=== PATIENT | female | born 1955 | race American Indian/Alaskan Native ===

== ENCOUNTER 2020-02-02 15:16 | Emergency (ER) | payer MEDICARE ==
[2020-02-02 17:09] VITALS: BP 199/106
[2020-02-02] MEDS ORDERED: cloNIDine 0.2 MG TAB PO ONE (17:09)
--- NOTE | 2020-02-02 17:09 | Event Note ---
ED Screening Note Date of service: 02/02/20 Time: 17:08 ED Screening Note: 4-year-old female with a history of hypertension controlled with medication, stating that she has been taking her medication she was sent here from [facility] due to elevated blood pressure. Blood pressure taken in the screening room was 199/106 which is elevated from initial triage blood pressure reading. Basic labs will be ordered, clonidine 0.2 This initial assessment/diagnostic orders/clinical plan/treatment(s) is/are subject to change based on patients health status, clinical progression and re- assessment by fellow clinical providers in the ED. Further treatment and workup at subsequent clinical providers discretion. Patient/guardian urged not to elope from the ED as their condition may be serious if not clinically assessed and managed. Initial orders include: clonidine 0.2 labs/ekg
[2020-02-02 17:58] LABS: Basophils % (Auto) 0.1 % (0.0-1.8); Eosinophils # (Auto) 0.1 K/mm3 (0.0-0.4); Hematocrit 37.3 % (30.3-42.9); Hemoglobin 12.4 gm/dl (10.1-14.3); Lymphocytes # (Auto) 2.6 K/mm3 (1.2-5.4); Lymphocytes % (Auto) 27.8 % (13.4-35.0); Mean Corpuscular HGB Conc 33 % (30-34); Mean Corpuscular Volume 88 fl (79-97); Monocytes # (Auto) 0.4 K/mm3 (0.0-0.8); Monocytes % (Auto) 4.2 % (0.0-7.3); Platelet Count 131 K/mm3 (140-440); Red Blood Count 4.25 M/mm3 (3.65-5.03); Red Cell Distribution Width 14.4 % (13.2-15.2)
[2020-02-02 18:37] LABS: Albumin 4.3 g/dL (3.9-5); Calcium 10.4 mg/dL (8.4-10.2)
== END 2020-02-02 19:50 | disposition left against medical advice (07) ==
LOC: ED 15:16
DX: I10 Essential (primary) hypertension (principal); Z53.21 Procedure and treatment not carried out due to patient leaving prior to being seen by health care provider
CPT/HCPCS: 36415; 80053; 85025